=== PATIENT | female | born 2005 | race Hispanic/Latino ===

== ENCOUNTER 2025-05-20 21:25 | Emergency (ER) | payer SELFPAY ==
[2025-05-20 21:30] VITALS: BP 104/71; PULSE 70; RESP 14; TEMP 36.9; O2SAT 99; BMI 24.1
[2025-05-20 22:14] LABS: Hematocrit 35.9 % (37-47); Hemoglobin 11.8 g/dL (12.0-15.0); Immature Granulocytes Count 0.030 X10^3/uL (0.0-0.0); Mean Corp Hgb Conc 32.9 g/dL (32-36); Mean Corpuscular Volume 86.1 fL (81-99); Mean Platelet Vol. 10.5 fl (6.2-12.0); NRBC Flagged by Analyzer 0 % (0-5); Platelet Count 293 K/mm3 (150-450); RBC Distribution Width CV 13.7 % (11.6-14.6); RBC Distribution Width SD 43.4 fl (35.1-43.9); Red Blood Count 4.17 M/mm3 (4.2-5.4); White Blood Count 8.3 K/mm3 (4.4-11.0)
[2025-05-20 22:32] LABS: Internal QC Validated? YES +Cl - CLEAR BKGD
[2025-05-20 22:33] LABS: Pregnancy, Serum, hCG Quali. NEGATIVE Negative; Record Kit Lot#, Serum Preg. 962302
[2025-05-20 22:56] LABS: AST(SGOT) 21 U/L (<=31); Alanine Aminotransfer ALT/SGPT 13 U/L (<=34); Albumin, Serum 4.2 g/dL (3.5-5.0); Alkaline Phosphatase 103 U/L (35-104); Anion Gap 13 (5-15); BUN 15 mg/dL (4-19); BUN/Creat Ratio 26.3 RATIO (10-20); Calcium,Total 9.3 mg/dL (7.6-11.0); Carbon Dioxide 22.3 mmol/L (21.0-32.0); Chloride 102 mmol/L (98-108); Estimated Creatinine Clearance 125.68 ml/min (50-250); Globulin 3.6 g/dL (2.2-4.2); Glucose 98 mg/dL (70-99); Lipase 18 U/L (13-75); Potassium 3.7 mmol/L (3.3-5.1)
--- NOTE | 2025-05-20 22:59 | ED.VIS.GI ---
HPI HPI - GI History of Present Illness Chief Complaint: Abd Pain Informant: patient and friend Limited: language barrier (Arts Administrator used) Narrative Narrative: 19-year-old female has been having lower abdominal discomfort for about a week. She states has been urinating more and it clark to urinate but she denies having worsening abdominal pain with urinating. Pain radiates into her mid low back, very low. A little bit of nausea no vomiting. No fevers that she knows of. No history of surgeries in her abdomen in the past or other medical problems. She had a little bit of vaginal bleeding yesterday but that is gone and she denies an abnormal discharge, although she feels like she is having a normal discharge for her. She is not that she knows of. Normal bowel movements. Is sexually active, unknown if exposed to STIs or not. [facility] Medical History (Updated 05/21/25 @ 03:[address] Donald Lugo MD) Abdominal pain Medical History no medical history no medical history Home Medications ?Medication ?Instructions ?Recorded ?Last Taken ?Type doxycycline monohydrate 100 mg 100 mg PO BID #14 CAPSULES 05/21/25 Unknown Rx capsule Allergy/AdvReac Type Severity Reaction Status Date / Time No Known Allergies Allergy Verified 05/20/25 21:36 Social History Smoking Status: Unknown if ever smoked ROS ROS ED Constitutional Constitutional ED: Denies chills or fever(s) Eyes Eyes: Denies change in vision or diplopia ENT ENT ED: Denies rhinorrhea or sore throat Cardiovascular Cardiovascular: Denies chest pain or palpitations Respiratory/Chest Respiratory/Chest: Denies cough or dyspnea Gastrointestinal Gastrointestinal: Reports abdominal pain; Denies diarrhea, nausea or vomiting Genitourinary Genitourinary ED: Reports urinary frequency; Denies dysuria or hematuria Musculoskeletal Musculoskeletal: Reports back pain; Denies neck pain Integumentary Denies abscess or rash Neurologic Neurologic: Denies headache(s), paresthesias or weakness Psychiatric Psychiatric: Denies anxiety or suicidal thoughts EXAM Physical Exam Const Vital Signs: 05/20/25 21:30 05/21/25 00:21 Temperature 98.4 F 98.3 F Temperature Source Oral Oral Pulse Rate 70 66 Respiratory Rate 14 18 Blood Pressure 104/71 103/63 Blood Pressure Mean 82 76 Pulse Ox 99 98 Oxygen Delivery Method Room Air Room Air Positive well nourished and well developed General Appearance ED: well developed and NAD HEENT Reports moist mucous membranes normocephalic and atraumatic Eyes PERRL and EOMs intact bilaterally Neck full ROM and supple Resp normal respiratory effort and clear to auscultation bilaterally Cardio regular rate, regular rhythm and no murmurs GI non-distended GI Narrative: Suprapubic tenderness without guarding or rebound. The rest of the abdomen is benign. Auscultation: normoactive bowel sounds Palpation: soft Back/Spine no CVA tenderness General Back: other FROM Extremity normal to inspection General Extremety ED: Negative for edema, pulses abnormal or tenderness General Extremity: Negative for edema or pulses abnormal Neuro oriented x3, CN's II-XII intact bilaterally and no sensory deficits noted Sensorium / Orientation: awake and alert Motor Exam: strength 5/5 throughout Skin no rashes or lesions noted and no wounds MDM MDM MDM Narrative Medical decision making narrative: Labs, negative/normal, including liver enzymes and her urinalysis is normal. I discussed with the patient, concern may be for STI. We could send urine for trichomonas, GC, chlamydia, which we did but she declined a pelvic swab for BV and/or exam for cervicitis/PID right now although all of these are considered. We sent these test but she did not want to wait for the results since they were taking some time, and she was okay with getting empiric treatment. Therefore she will be given Rocephin 500 mg IM in addition to her doxycycline and prescribed doxycycline for a week, to cover for GC and chlamydia sources of PID empirically. She is advised to follow-up with gynecology if her symptoms do not resolve. She is comfortable with that overall plan. Lab Data Attestation: I reviewed the patient's lab results. Labs: Laboratory Results - last 24 hr 05/20/25 05/21/25 21:57 00:20 WBC 8.3 RBC 4.17 L Hgb 11.8 L Hct 35.9 L MCV 86.1 MCH 28.3 MCHC 32.9 RDW Std Deviation 43.4 RDW Coeff of [place] 13.7 Plt Count 293 MPV 10.5 Immature Gran % (Auto) 0.400 Neut % (Auto) 56.6 Lymph % (Auto) 20.0 [place] % (Auto) 14.8 H Eos % (Auto) 8.0 H Baso % (Auto) 0.2 Absolute Neuts (auto) 4.7 Absolute Lymphs (auto) 1.67 Nucleated RBC % 0 Sodium 137 Potassium 3.7 Chloride 102 Carbon Dioxide 22.3 Anion Gap 13 BUN 15 Creatinine 0.56 L Estim Creat Clear Calc 125.68 Est GFR (MDRD) Non-Af 133 BUN/Creatinine Ratio 26.3 H Glucose 98 Calcium 9.3 Total Bilirubin 0.76 AST 21 ALT 13 Alkaline Phosphatase 103 Total Protein 7.8 Albumin 4.2 Globulin 3.6 Albumin/Globulin Ratio 1.2 Lipase 18 Serum , Qual NEGATIVE Urine Color Yellow Urine Clarity Clear Urine pH 6.0 Ur Specific [place] 1.015 Urine Protein 15 H Urine Glucose (UA) Normal Urine Ketones Negative Urine Occult Blood 10 H Urine Nitrite Negative Urine Bilirubin Negative Urine Urobilinogen 1 H Ur Leukocyte Esterase Negative Urine RBC 0 SEEN Urine WBC 0 SEEN Ur Squamous Epith Cells 0 SEEN Urine Bacteria 0 SEEN Urine Mucus 0 SEEN Discharge Plan Triage Chief Complaint: Abd Pain ED Provider: Donald Lugo Dx/Rx/DC Orders Clinical Impression: Acute pain in female pelvis, Dysuria Instructions: ED Testing for Suspected STI Prescriptions: New doxycycline monohydrate 100 mg capsule 100 mg PO BID Qty: 14 0RF Primary Care Provider: Care Physician,No Primary Referrals: Jazmyne Damian MD [Med Staff - Active Staff] - 1 Week if not improving Print Language: Citizen Of [place] Disposition Disposition: Home, Self Care
[2025-05-21 00:21] VITALS: BP 103/63; PULSE 66; RESP 18; TEMP 36.8; O2SAT 98
[2025-05-21 00:27] LABS: Mucous, Urine 0 SEEN /hpf (<or=2+); Red Blood Cells-Urine 0 SEEN /hpf (0-5); Squamous Epithelial Cells - UA 0 SEEN /hpf (5-10)
[2025-05-21 00:30] LABS: Color, Urine Yellow (Yellow); Glucose, Dipstick Normal (Normal); Ketone-Dipstick Negative (Negative); Leukocyte Esterase-Dipstick Negative /ul (Negative); Nitrite-Dipstick Negative (Negative); Occult Blood-Urine 10 /ul (Negative); Protein-Dipstick 15 mg/dl (Negative); Specific Gravity, Urine 1.015 (1.002-1.030); Urine Bilirubin Dipstick Negative (Negative)
--- NOTE | 2025-05-21 03:48 | ED.RN ---
[facility], pt expressed concerns about taking medication prior to getting final results of the chlamydia results. she also expressed that she wanted to leave as soon as possible. after discussing the situation with her and her friends, the pt has chosen to NOT receive any doses of antibiotics until the tests result. pt was educated re:importance of being treated early in her infection. pt was reminded that it is passed through sexual intercourse and encouraged to seek treatment quickly if her results are positive. d/c instructions provided. dr hernandez made aware of pt refusing to be medicated at this time.
--- NOTE | 2025-05-21 04:14 | ED.RN ---
using languag[employer] wax pot tender, left a vm for pt requesting that she call the emergency department to obtain directions on seeking treatment.
--- NOTE | 2025-05-21 04:23 | ED.RN ---
pt returned to ed at this time, seeking treatment for positive test results.
== END 2025-05-21 05:19 | disposition home or self-care (01) ==
PROVIDERS: Emergency Provider Emergency Medicine; Visit Provider Emergency Medicine
DX: R10.2 Pelvic and perineal pain (principal); R30.0 Dysuria
CPT/HCPCS: 80053; 81001; 83690; 84703; 85025; 87491; 87591; 87661; 96372; 99283; A4216